=== PATIENT | male | born 1995 | race Hispanic/Latino ===

== ENCOUNTER 2024-04-09 18:18 | Emergency (ER) | payer SELFPAY ==
[2024-04-09] MEDS ORDERED: Lidocaine 1% PF 5 ML VIAL ONE (18:45)
[2024-04-09] MEDS ORDERED: Bacitracin 1 PK ONE (18:46)
[2024-04-09] MEDS ORDERED: Boostrix 0.5 ML (Tdap) VIAL (>/=7 yrs of age) ONE (18:46)
[2024-04-09] MEDS ORDERED: Naproxen 500 MG TAB ONE (18:46)
[2024-04-09] MEDS ORDERED: Clindamycin 150 MG CAP ONE (19:30)
== END 2024-04-09 19:49 | disposition home or self-care (01) ==
LOC: MADERS 18:18
DX: S41.111A Laceration without foreign body of right upper arm, initial encounter (principal); Z23 Encounter for immunization; W26.8XXA Contact with other sharp object(s), not elsewhere classified, initial encounter
CPT/HCPCS: 12002; 90471; 90715